=== PATIENT | female | born 2000 | race Caucasian/White ===

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

== ENCOUNTER 2020-12-16 02:39 | Inpatient (IN) | payer OTHER ==
[~2020-12-16] VITALS: Ht 157.5 cm; Wt 90.7 kg
[2020-12-16 03:26] LABS: BILIRUBIN 1+ mg/dL (NEGATIVE); BLOOD 2+ Ery/uL (NEGATIVE); COLOR YELLOW (YELLOW); GLUCOSE (U) NORMAL (NORMAL); LEUKOCYTES NEGATIVE Leu/uL (NEGATIVE); NITRITE NEGATIVE (NEGATIVE); PROTEIN TRACE (LOW) mg/dL (NEGATIVE); SPECIFIC GRAVITY 1.025 (1.001-1.030)
[2020-12-16 03:27] LABS: CLARITY HAZY (CLEAR)
[2020-12-16 03:34] LABS: HCT 37.1 % (37.0-47.0); HGB 12.3 g/dl (12.5-16.0); MCH 28.5 pg (25.0-31.0); MCHC 33.2 g/dL (32.0-36.0); MCV 86.1 fL (78.0-100.0); MPV 11.6 fL (6.0-9.5); RBC 4.31 M/uL (4.20-5.40); RDW 13.6 % (11.5-14.0); WBC 8.1 K/uL (4.0-10.5)
[2020-12-16 03:48] LABS: URINARY WBC RARE
[2020-12-16 03:49] LABS: BACTERIA 2+
[2020-12-16 03:52] LABS: ALBUMIN 2.5 g/dL (3.4-5.0); BILIRUBIN - TOTAL 0.6 mg/dL (0.2-1.0); BUN/CREAT RATIO (CALC) 26.4 RATIO; CREATININE 0.53 mg/dL (0.51-0.95); GLOBULIN (CALCULATION) 4.4 g/dL; POTASSIUM 3.4 mmol/L (3.5-5.1); TOTAL PROTEIN 6.9 g/dL (6.4-8.2)
[2020-12-17 06:16] LABS: HCT 31.9 % (37.0-47.0); HGB 10.4 g/dl (12.5-16.0); MCH 28.7 pg (25.0-31.0); MCHC 32.6 g/dL (32.0-36.0); MCV 88.1 fL (78.0-100.0); MPV 12.5 fL (6.0-9.5); RBC 3.62 M/uL (4.20-5.40); RDW 13.9 % (11.5-14.0); WBC 7.9 K/uL (4.0-10.5)
[2020-12-17] MEDS ORDERED: MLYLANTA/MAALOX30 ML PO (23:16)
[2020-12-17] MEDS ORDERED: IBUPROFEN800 MG PO (23:16)
== END 2020-12-18 09:30 | disposition home or self-care (01) | DRG 806 ==
LOC: FOD 02:39 → FOB 02:39 → FOD 03:16 → FOB 03:17
PROVIDERS: ADMIT Specialist
PROC: 10E0XZZ Delivery of Products of Conception, External Approach (ICD-10-PCS; principal; 2020-12-16)
DX: O24.429 Gestational diabetes mellitus in childbirth, unspecified control (principal); O10.92 Unspecified pre-existing hypertension complicating childbirth; Z37.0 Single live birth; O99.214 Obesity complicating childbirth; Z20.822 Contact with and (suspected) exposure to COVID-19; O69.81X0 Labor and delivery complicated by cord around neck, without compression, not applicable or unspecified; Z3A.37 37 weeks gestation of pregnancy; Z88.1 Allergy status to other antibiotic agents
CPT/HCPCS: 36415; 80053; 81001; 82947; J0595; J2405; J7120; U0002